=== PATIENT | female | born 1995 | race Hispanic/Latino ===

== ENCOUNTER 2021-04-21 16:32 | Emergency (ER) | payer SELFPAY ==
[2021-04-21] MEDS ORDERED: Acetaminophen 500 MG TAB ONE (17:21)
[2021-04-22 15:34] LABS: SARS-CoV-2 PCR by NAA Not Detected (NotDetected)
== END 2021-04-21 18:41 | disposition home or self-care (01) ==
LOC: CSHERS 16:32
DX: O99.891 Other specified diseases and conditions complicating pregnancy (principal); R50.9 Fever, unspecified; R53.81 Other malaise; Z20.822 Contact with and (suspected) exposure to COVID-19; Z3A.10 10 weeks gestation of pregnancy
CPT/HCPCS: 87804; 99284; U0003; U0005